=== PATIENT | female | born 1980 | race African-American/Black ===

== ENCOUNTER 2023-12-03 21:40 | Emergency (ER) | payer MEDICAID, OTHER ==
[2023-12-03] MEDS ORDERED: Ketorolac Tromethamine 30 MG (1 mL) VIAL ONE (23:06)
[2023-12-03] MEDS ORDERED: Acetaminophen 500 MG TAB ONE (23:06)
[2023-12-03] MEDS ORDERED: Lidocaine 4% Patch ONE (23:18)
[2023-12-03 23:43] LABS: Bacteria/HPF None Seen HPF (None Seen); Bilirubin Negative (Negative); Blood, Urine Negative (Negative); CAUTI Indications for Culture Alt mental st,lethar; Clarity Clear (Clear); Glucose, Urine (Dipstick) Normal (Negative); Ketone, Urine Negative (Negative); Leukocyte Negative Leu/uL (Negative); Nitrite Negative (Negative); Protein, Urine (Dipstick) Negative (Neg-Trace); RBC/HPF 0-3 HPF (0-3); Specific Gravity, Urine 1.003 (1.002-1.036); Squamous Epithelial 0-3 HPF (0-3); Urobilinogen Normal mg/dL (Less than 2); WBC/HPF 0-3 HPF (0-3)
[2023-12-03 23:57] LABS: Urine Culture Reflex No No
== END 2023-12-04 00:05 | disposition home or self-care (01) ==
LOC: ERS 21:40
DX: M54.50 Low back pain, unspecified (principal); L03.211 Cellulitis of face; L72.3 Sebaceous cyst; F17.210 Nicotine dependence, cigarettes, uncomplicated
CPT/HCPCS: 81001; 96372; 99283; J1885

== ENCOUNTER 2024-05-30 09:30 | Emergency (ER) | payer MEDICAID, OTHER, SELFPAY ==
[2024-05-30] MEDS ORDERED: Ibuprofen 800 MG TAB ONE (10:16)
== END 2024-05-30 10:40 ==
LOC: ERS 09:30
DX: K04.7 Periapical abscess without sinus (principal); F17.210 Nicotine dependence, cigarettes, uncomplicated
CPT/HCPCS: 99282

== ENCOUNTER 2024-09-17 21:21 | Emergency (ER) | payer OTHER ==
[2024-09-17] MEDS ORDERED: Ketorolac Tromethamine 30 MG (1 mL) VIAL ONE (22:09)
== END 2024-09-17 23:18 | disposition home or self-care (01) ==
LOC: ERS 21:21
DX: M79.604 Pain in right leg (principal); M79.605 Pain in left leg; F17.210 Nicotine dependence, cigarettes, uncomplicated
CPT/HCPCS: 85379; 96372; J1885

== ENCOUNTER 2025-01-26 10:09 | Emergency (ER) | payer OTHER ==
[2025-01-26] MEDS ORDERED: HYDROcodone/Acetaminophen 10/325 mg Tablet ONE (10:28)
== END 2025-01-26 10:32 | disposition home or self-care (01) ==
LOC: ERS 10:09
DX: K08.89 Other specified disorders of teeth and supporting structures (principal); K02.9 Dental caries, unspecified; F17.210 Nicotine dependence, cigarettes, uncomplicated
CPT/HCPCS: 99282

== ENCOUNTER 2025-04-12 12:35 | Emergency (ER) | payer OTHER | END 2025-04-12 16:32 | disposition home or self-care (01) | LOC: ERS 12:35 | DX: M79.662 Pain in left lower leg (principal); M79.604 Pain in right leg; G89.29 Other chronic pain; F17.210 Nicotine dependence, cigarettes, uncomplicated | CPT/HCPCS: 96372; 99282; J2919 ==